=== PATIENT | female | born 1990 | race Caucasian/White ===

== ENCOUNTER 2017-06-22 20:45 | Emergency (ER) | payer OTHER ==
[~2017-06-22] VITALS: Ht 157.5 cm; Wt 69.5 kg
[~2017-06-22 20:45] MED LIST: AMOX500C2 PO; FERR27TA PO; IBUP-1542 PO; LEVE500S8 PO; LOPE2CAP PO; ONDA4TAB35 PO; PREN1TAB49 PO
[2017-06-22 20:48] VITALS: Ht 157.5 cm; Wt 69.5 kg
[2017-06-22] MEDS ORDERED: HYDROmorphONE 1 MG/ML SYG IV STA (21:12)
[2017-06-22] MEDS ORDERED: ONDANSETRON 4 MG INJ IV STA (21:12)
[2017-06-22] MEDS ORDERED: LEVETIRACETAM 750 MG TAB PO ONE (21:30)
[2017-06-22 22:26] VITALS: BP 111/72; PULSE 71; RESP 17; TEMP 98.6
--- NOTE | 2017-06-22 23:03 | RADRPT ---
PROCEDURE: XR Left Wrist. CLINICAL INDICATION: Trauma TECHNIQUE: AP and lateral views of the left wrist were performed. COMPARISON: No prior studies are available for comparison. FINDINGS: There is no evidence of acute fracture. Comminuted fracture of the distal articular metaphysis of the left radius. Likely fracture at the ba se of the ulnar styloid. The bones appear well mineralized. The joint spaces are well preserved. Soft tissue swelling over the distal left forearm and wrist. IMPRESSION: 1. Comminuted fracture of the distal articular metaphysis of the left radius. 2. Likely fracture of the base of the ulnar styloid. RPTAT: [facility] Physician Jeannette Date Time Electronically viewed and signed by Physician Jeannette on 06/22/2017 23:03 RS/
[2017-06-23] MEDS ORDERED: IBUP-1542 PO (00:28)
[2017-06-23] MEDS ORDERED: HYDR-902 PO (00:28)
[2017-06-23] MEDS ORDERED: LEVE750T70 PO (00:29)
[2017-06-23] MEDS ORDERED: HYDROmorphONE 1 MG/ML SYG IV STA (00:40)
--- NOTE | 2017-06-23 00:40 | ERD ---
ER Documentation Chief Complaint Date/Time DATE: 06/23/17 TIME: 00:34 Chief Complaint L wrist with obvious deformity injured during seizure HPI This 26 old female who presented with a seizure prior to arrival with swelling and deformity to her left distal radius. Patient takes Keppra 1000 mg twice daily says she forgot to take it last night. The patient had a witnessed seizure prior to arrival. Patient apparently fell and landed on her left wrist and proceeded to have a seizure lasting approximately 1 minute as general tonic-clonic. Patient had a brief postictal state. The patient is complaining of pain in her left wrist described as sharp nonradiating worse with movement better with rest. Denies any headache neck pain other extremity pain back pain with pain ROS All systems reviewed and are negative except as per history of present illness. Medications Home Meds Active Scripts Levetiracetam* (Keppra*) 750 Mg Tablet, 1500 MG PO BID, #60 TAB Prov:IDALMISOS,APOSTOLOS A. DO 06/23/17 Ibuprofen* (Motrin*) 600 Mg Tab, 600 MG PO Q8, #30 TAB Prov:LEKKOS,APOSTOLOS A. DO 06/23/17 Hydrocodone/Acetaminophen ([place] 10-325 Tablet) 1 Each Tablet, 1 TAB PO Q6H Y for PAIN, #20 TAB Prov:LEKKOS,APOSTOLOS A. DO 06/23/17 Ibuprofen* (Motrin*) 600 Mg Tab, 600 MG PO Q6H Y for PAIN AND OR ELEVATED TEMP, #30 TAB Prov:TAMERA SUMNER. PROTECTIVE SIGNAL OPERATIONS SUPERVISOR 11/27/15 Loperamide Hcl* (Imodium*) 2 Mg Capsule, 2 MG PO .AFTER EA LOOSE BM Y for DIARRHEA, #10 TAB 0 Refills Prov:JOEY GOMEZ PA-C 09/11/15 Ondansetron Hcl* (Zofran* ODT) 4 mg -ODT Tab.disper, 4 MG PO DAILY Y for NAUSEA AND/OR VOMITING, #10 TAB 0 Refills Prov:JOEY GOMEZ PA-C 09/11/15 Reported Medications Amoxicillin* (Amoxicillin*) 500 Mg Cap, 500 MG PO TID, CAP 01/05/15 Levetiracetam* (Keppra*) 500 Mg/5 Ml Solution, 500 MG PO BID 11/17/12 Ferrous Sulfate (Iron) 1 Tab Tablet, 1 TAB PO BID 11/17/12 Vits W-Ca,Fe,Fa(<1MG) () 1 Tab Tablet, 1 TAB PO DAILY 11/17/12 Allergies Allergies: Coded Allergies: No Known Allergies (Verified Allergy, Mild, 09/11/15) PMhx/Soc History of Surgery: No Anesthesia Reaction: No Hx Neurological Disorder: Yes (seizure disorder) Hx Respiratory Disorders: No Hx Cardiac Disorders: No Hx Psychiatric Problems: No Hx Miscellaneous Medical Probl: No (denies PMH) Hx Alcohol Use: No Hx Substance Use: No Hx Tobacco Use: No Smoking Status: Never smoker FmHx Family History: No coronary disease Physical Exam Vitals Vital Signs Date Time Temp Pulse Resp B/P Pulse Ox O2 Delivery O2 Flow Rate FiO2 06/22/17 22:26 98.6 71 17 111/72 100 Room Air 06/22/17 20:48 99.1 83 20 129/97 99 Physical Exam Const: Well-developed, well-nourished Head: Atraumatic, normocephalic Eyes: Normal Conjunctiva, PERRLA, EOMI, normal sclera, no nystagmus ENT: Normal External Ears, Nose and Mouth, moist mucus membranes. Neck: Full range of motion. No meningismus, no lymphadenopathy. Resp: Clear to auscultation bilaterally, no wheezing, rhonchi, rales Cardio: Regular rate and rhythm, no murmurs, S1 S2 present Abd: Soft, non tender x 4, non distended. Normal bowel sounds, no guarding or rebound, no pulsitile abdominal masses or bruits Skin: No petechiae or rashes, no ecchymosis , no maculopapular rash Back: No midline or flank tenderness Ext: No cyanosis, or edema, FROM x 3, left wrist has swelling and some mild ecchymosis to the dorsal aspect of the distal radius is also swelling on the volar aspect of the distal radius is decreased range of motion secondary to pain, normal inspection, neurovascularly intact x 4 Neur: Awake and alert, STR 5/5 x 4, sensation intact x 4, no focal findings, cerebellum intact Psych: Normal Mood and Affect Results 24 hrs Current Medications Medications (Trade) Dose Ordered Sig/Misti Route PRN Reason Start Time Stop Time Status Last Admin Dose Admin Hydromorphone HCl (Dilaudid) 1 mg ONCE STAT IV 06/22/17 21:12 06/22/17 21:14 DC 06/22/17 21:25 Ondansetron HCl (Zofran Inj) 4 mg ONCE STAT IV 06/22/17 21:12 06/22/17 21:14 DC 06/22/17 21:24 Levetiracetam (Keppra) 1,500 mg ONCE ONCE PO 06/22/17 21:30 06/22/17 21:31 DC 06/22/17 21:25 Procedures/MDM PROCEDURE: XR Left Wrist. CLINICAL INDICATION: Trauma TECHNIQUE: AP and lateral views of the left wrist were performed. COMPARISON: No prior studies are available for comparison. FINDINGS: There is no evidence of acute fracture. Comminuted fracture of the distal articular metaphysis of the left radius. Likely fracture at the base of the ulnar styloid. The bones appear well mineralized. The joint spaces are well preserved. Soft tissue swelling over the distal left forearm and wrist. IMPRESSION: 1. Comminuted fracture of the distal articular metaphysis of the left radius. 2. Likely fracture of the base of the ulnar styloid. RPTAT: [facility] Physician Jeannette Date Time Electronically viewed and signed by Physician Jeannette on 06/22/2017 23:03 RS/ CC: MACHO CAMARENA DO Volar splint was applied by casting technician She was loaded with Keppra. We will discharge and follow up with Dr. monte for surgery. Patient likely had a seizure for skipping a dose of Keppra and I will increase her dose this could be a breakthrough seizure Departure Diagnosis: Primary Impression: Closed fracture distal radius and ulna Encounter type: initial encounter Laterality: left Qualified Code: S52.502A - Closed fracture of distal ends of left radius and ulna, initial encounter Additional Impression: Seizure Condition: Stable Patient Instructions: Radius And Ulna Fx, No Reduction Required, Seizure, Recurrent [Adult] Referrals: DAVY SALINAS MD, APOSTOLOS A. DO Jun 23, 2017 00:40
--- NOTE | 2017-06-23 07:21 | RADRPT ---
PROCEDURE: XR Left Wrist. CLINICAL INDICATION: Trauma TECHNIQUE: AP, lateral and oblique views of the left wrist were performed. COMPARISON: No prior studies are available for comparison. FINDINGS: Comminuted, intra-articular mildly dorsally angulated fracture of the distal radius and displaced fr acture of the ulnar styloid are visualized. No evidence of dislocation or subluxation. The bones appear well mineralized. The joint spaces are well preserved. Soft tissue swelling is seen. IMPRESSION: Comminuted mildly dorsally angulated fracture of the distal radius and displaced fracture of the uln ar styloid. Physician Kiah Date Time Electronically viewed and signed by Physician Kiah on 06/23/2017 07:21 CS/
== END 2017-06-23 01:16 | disposition home or self-care (01) ==
LOC: E/R 20:45
DX: S52.502A Unspecified fracture of the lower end of left radius, initial encounter for closed fracture (principal); G40.909 Epilepsy, unspecified, not intractable, without status epilepticus; W18.39XA Other fall on same level, initial encounter; Y92.9 Unspecified place or not applicable
CPT/HCPCS: 73090; 73110; 96374; 96375; 96376; J1170; J2405; Z7502; Z7610

== ENCOUNTER 2018-01-30 22:46 | Emergency (ER) | END 2018-01-30 23:15 | disposition home or self-care (01) ==

== ENCOUNTER 2018-12-08 16:39 | Emergency (ER) | payer OTHER ==
[~2018-12-08] VITALS: Ht 165.1 cm; Wt 65.0 kg
[~2018-12-08 16:39] MED LIST changes: +HYDR-3980 PO; +LEVE750T70 PO
[2018-12-08 16:47] VITALS: Ht 165.1 cm; Wt 65.0 kg
[2018-12-08] MEDS ORDERED: LEVE750T70 PO (17:28)
[2018-12-08] MEDS ORDERED: LORAZEPAM 2 MG INJ IV ONE (17:30)
[2018-12-08] MEDS ORDERED: LEVETIRACETAM 500 MG (PMX) 100 ML IVPB ONE (17:30)
--- NOTE | 2018-12-08 17:31 | ERD ---
ER Documentation Chief Complaint Chief Complaint BIB [facility] FOR EVAL OF SEIZURE. HX OF TAKES KEPPRA. NO HEAD/ORAL TRAUMA HPI This is a 28-year-old female with a long-standing history of seizure disorder since she was a baby was brought in by EMS for a witnessed seizure. Friend witnessed her have a general tonic seizure for 1 minute with a brief postictal state. The patient states she can tell she had a seizure. Patient's last seizure was 3 months ago. She takes 3 medications for seizures including Keppra. The patient states she has not missed any dosages and feels like she had a seizure because she is been stressed out lately. No recent illness. She denies any headache or other complaints. ROS All systems reviewed and are negative except as per history of present illness. Medications Home Meds Active Scripts Levetiracetam* (Keppra*) 750 Mg Tablet, 1500 MG PO BID, #60 TAB Prov:LEKKOS,APOSTOLOS A. DO 12/08/18 Levetiracetam* (Keppra*) 750 Mg Tablet, 1500 MG PO BID, #60 TAB Prov:LEKKOS,APOSTOLOS A. DO 06/23/17 Ibuprofen* (Motrin*) 600 Mg Tab, 600 MG PO Q8, #30 TAB Prov:LEKKOS,APOSTOLOS A. DO 06/23/17 Hydrocodone/Acetaminophen ([place] 10-325 Tablet) 1 Each Tablet, 1 TAB PO Q6H PRN for PAIN, #20 TAB Prov:LEKKOS,APOSTOLOS A. DO 06/23/17 Ibuprofen* (Motrin*) 600 Mg Tab, 600 MG PO Q6H PRN for PAIN AND OR ELEVATED TEMP, #30 TAB Prov:TAMERA SUMNER NP 11/27/15 Loperamide Hcl* (Imodium*) 2 Mg Capsule, 2 MG PO .AFTER EA LOOSE BM PRN for DIARRHEA, #10 TAB 0 Refills Prov:JOEY GOMEZ PA-C 09/11/15 Ondansetron Hcl* (Zofran* ODT) 4 mg -ODT Tab.disper, 4 MG PO DAILY PRN for NAUSEA AND/OR VOMITING, #10 TAB 0 Refills Prov:JOEY GOMEZ PA-C 09/11/15 Reported Medications Amoxicillin* (Amoxicillin*) 500 Mg Cap, 500 MG PO TID, CAP 01/05/15 Levetiracetam* (Keppra*) 500 Mg/5 Ml Solution, 500 MG PO BID 11/17/12 Ferrous Sulfate (Iron) 1 Tab Tablet, 1 TAB PO BID 11/17/12 Vits W-Ca,Fe,Fa(<1MG) () 1 Tab Tablet, 1 TAB PO DAILY 11/17/12 Allergies Allergies: Coded Allergies: No Known Allergies (Verified Allergy, Mild, 09/11/15) PMhx/Soc History of Surgery: No Anesthesia Reaction: No Hx Neurological Disorder: Yes (seizure disorder) Hx Respiratory Disorders: No Hx Cardiac Disorders: No Hx Psychiatric Problems: No Hx Miscellaneous Medical Probl: No (denies PMH) Hx Alcohol Use: No Hx Substance Use: No Hx Tobacco Use: No FmHx Family History: No coronary disease Physical Exam Vitals Vital Signs Date Temp Pulse Resp B/P (MAP) Pulse Ox O2 O2 Flow FiO2 Time Delivery Rate 12/08/18 99.0 90 16 115/70 99 16:47 (85) Physical Exam Const: Well-developed, well-nourished Head: Atraumatic, normocephalic Eyes: Normal Conjunctiva, PERRLA, EOMI, normal sclera, no nystagmus ENT: Normal External Ears, Nose and Mouth, moist mucus membranes. Neck: Full range of motion. No meningismus, no lymphadenopathy. Resp: Clear to auscultation bilaterally, no wheezing, rhonchi, rales Cardio: Regular rate and rhythm, no murmurs, S1 S2 present Abd: Soft, non tender x 4, non distended. Normal bowel sounds, no guarding or rebound, no pulsitile abdominal masses or bruits Skin: No petechiae or rashes, no ecchymosis , no maculopapular rash Back: No midline or flank tenderness Ext: No cyanosis, or edema, FROM x 4, normal inspection, neurovascularly intact x 4 Neur: Awake and alert, STR 5/5 x 4, sensation intact x 4, no focal findings, cerebellum intact Psych: Normal Mood and Affect Results 24 hrs Current Medications Medications Dose Sig/Misti Start Time Status Last (Trade) Ordered Route PRN Stop Time Admin Dose Reason Admin Lorazepam 0.5 mg ONCE ONCE 12/08/18 (Ativan) IV 17:30 12/08/18 17:31 100 ml @ ONCE ONCE 12/08/18 Levetiracetam 400 mls/hr IVPB 17:30 12/08/18 17:44 Procedures/MDM I will give her some intravenous Ativan and Keppra. I am able to manipulate only the Keppra med that she takes out of the 3. She takes 1000 mg twice daily now we will increase this to 1500 mg twice daily Departure Diagnosis: Primary Impression: Seizure disorder Condition: Stable Patient Instructions: Seizure, Recurrent [Adult] Referrals: DOCTOR,NOT ON STAFF (PCP) MACHO CAMARENA DO Dec 08, 2018 17:31
[2018-12-08 19:18] VITALS: BP 127/77; PULSE 91; RESP 18
== END 2018-12-09 08:23 | disposition home or self-care (01) ==
LOC: E/R 16:39
DX: G40.909 Epilepsy, unspecified, not intractable, without status epilepticus (principal)
CPT/HCPCS: 96374; 96375; J1953; J2060; Z7502

== ENCOUNTER 2019-02-14 10:59 | Emergency (ER) | payer OTHER ==
[~2019-02-14] VITALS: Ht 160 cm; Wt 68.0 kg
[2019-02-14 11:10] VITALS: Ht 160 cm; Wt 68.0 kg
[2019-02-14] MEDS ORDERED: KETOROLAC 30 MG INJ IM STA (11:57)
[2019-02-14] MEDS ORDERED: IBUP-1542 PO (13:37)
--- NOTE | 2019-02-14 13:54 | ERD ---
ER Documentation Chief Complaint Chief Complaint neck pain s/p seizure last night HPI Is a 28-year-old female who presents the emergency room with complaint of left- sided neck pain after falling out of bed yesterday. Patient has a history of seizures that she has had since she was a baby and last night had a brief 15- second seizure when she fell out of bed. This was witnessed by her mother. Patient states that she frequently has breakthrough seizures and this is not unusual for her. States she is taking her medications as prescribed. Denies any other chronic medical conditions. ROS All systems reviewed and are negative except as per history of present illness. Medications Home Meds Active Scripts Ibuprofen* (Motrin*) 600 Mg Tab, 600 MG PO Q6, #30 TAB Prov:ASHOK MADRID SPECIAL DIET COOK 02/14/19 Levetiracetam* (Keppra*) 750 Mg Tablet, 1500 MG PO BID, #60 TAB Prov:LEKKOS,APOSTOLOS A. DO 12/08/18 Levetiracetam* (Keppra*) 750 Mg Tablet, 1500 MG PO BID, #60 TAB Prov:LEKKOS,APOSTOLOS A. DO 06/23/17 Ibuprofen* (Motrin*) 600 Mg Tab, 600 MG PO Q8, #30 TAB Prov:LEKKOS,APOSTOLOS A. DO 06/23/17 Hydrocodone/Acetaminophen ([place] 10-325 Tablet) 1 Each Tablet, 1 TAB PO Q6H PRN for PAIN, #20 TAB Prov:LEKKOS,APOSTOLOS A. DO 06/23/17 Ibuprofen* (Motrin*) 600 Mg Tab, 600 MG PO Q6H PRN for PAIN AND OR ELEVATED TEMP, #30 TAB Prov:TAMERA SUMNER SPECIAL DIET COOK 11/27/15 Loperamide Hcl* (Imodium*) 2 Mg Capsule, 2 MG PO .AFTER EA LOOSE BM PRN for DIARRHEA, #10 TAB 0 Refills Prov:JOEY GOMEZ PA-C 09/11/15 Ondansetron Hcl* (Zofran* ODT) 4 mg -ODT Tab.disper, 4 MG PO DAILY PRN for NAUSEA AND/OR VOMITING, #10 TAB 0 Refills Prov:JOEY GOMEZ PA-C 09/11/15 Reported Medications Amoxicillin* (Amoxicillin*) 500 Mg Cap, 500 MG PO TID, CAP 01/05/15 Levetiracetam* (Keppra*) 500 Mg/5 Ml Solution, 500 MG PO BID 11/17/12 Ferrous Sulfate (Iron) 1 Tab Tablet, 1 TAB PO BID 11/17/12 Vits W-Ca,Fe,Fa(<1MG) () 1 Tab Tablet, 1 TAB PO DAILY 11/17/12 Allergies Allergies: Coded Allergies: No Known Allergies (Verified Allergy, Mild, 02/14/19) PMhx/Soc Medical and Surgical Hx: pt denies Surgical Hx History of Surgery: No Anesthesia Reaction: No Hx Neurological Disorder: Yes (seizure disorder) Hx Respiratory Disorders: No Hx Cardiac Disorders: No Hx Psychiatric Problems: No Hx Miscellaneous Medical Probl: No (denies PMH) Hx Alcohol Use: No Hx Substance Use: No Hx Tobacco Use: No Smoking Status: Never smoker Physical Exam Vitals Vital Signs Date Temp Pulse Resp B/P (MAP) Pulse Ox O2 O2 Flow FiO2 Time Delivery Rate 02/14/19 99.0 89 18 109/58 100 11:10 (75) Physical Exam Const: No acute distress Head: Atraumatic, No bruising, no hematoma, no crepitus, no maxillary or facial tenderness Eyes: Normal Conjunctiva, PERRL, EOMI ENT: Normal External Ears, TM clear BL, Nose without discharge, pharynx pink, moist, no lesions, no oral trauma Neck: Full range of motion. No meningismus. No lymphadenopathy. FROM with pain with lateral rotation, tender over left upper trapezius Resp: Clear to auscultation bilaterally Cardio: Regular rate and rhythm, no murmurs Abd: Soft, non tender, non distended. Normal bowel sounds Skin: No petechiae or rashes, no bruising Back: No midline or flank tenderness Ext: No cyanosis, or edema Neur: Awake and alert, CNII-XII intact, steady gait, clear speech, normal [id number] Psych: Normal Mood and Affect Results 24 hrs Laboratory Tests Test 02/14/19 12:08 02/14/19 12:09 Bedside Urine pH (LAB) 5.5 Bedside Urine Protein (LAB) Negative Bedside Urine Glucose (UA) Negative Bedside Urine Ketones (LAB) Trace Bedside Urine Blood Trace-lysed Bedside Urine Nitrite (LAB) Negative Bedside Urine Leukocyte Esterase (L Negative POC Beta HCG, Qualitative NEGATIVE Current Medications Medications Dose Sig/Misti Start Time Status Last (Trade) Ordered Route PRN Stop Time Admin Dose Reason Admin Ketorolac 30 mg ONCE STAT 02/14/19 DC 02/14/19 Tromethamine IM 11:57 12:20 (Toradol) 02/14/19 11:58 Procedures/MDM This is a 20-year-old female who presents emergency room with left neck pain. ED COURSE: The patient was stable throughout ED course. I kept the patient and/or family informed of laboratory and diagnostic imaging results throughout the ED course. MEDICATIONS GIVEN: Toradol Patient tolerated medication well with no adverse reactions. Patient reported improvement in pain. MDM: Patient pain improved after administration of Toradol. Patient ambulating freely, NAD. Exam and w/u not consistent w/ intracranial bleeding, skull fract ure, cervical fracture, dislocation, occult infection Clinical and diagnostic exam not suggestive of infection, intracranial process, SAH, SDH, neoplasm, meningitis, encephalitis, aneurysm, thrombus, temporal arteritis, sinusitis. The patient was well-appearing with VSS and without neurological deficits at time of reevaluation and discharge. The patient has been provided with instructions on self-care including use of analgesia, and need for close follow-up with primary care physician within 1-2 days for reevaluation. The patient has been instructed to return immediately for worsening symptoms, change in pattern of current symptoms, or other acute problems. . DISPOSITION: The patient has been discharge home to follow-up with community physician. Departure Diagnosis: Primary Impression: Neck sprain Condition: Stable Patient Instructions: Neck Sprain/Strain Referrals: [facility] YOU HAVE RECEIVED A MEDICAL SCREENING EXAM AND THE RESULTS INDICATE THAT YOU DO NOT HAVE A CONDITION THAT REQUIRES URGENT TREATMENT IN THE EMERGENCY DEPARTMENT. FURTHER EVALUATION AND TREATMENT OF YOUR CONDITION CAN WAIT UNTIL YOU ARE SEEN IN YOUR DOCTORS OFFICE WITHIN THE NEXT 1-2 DAYS. IT IS YOUR RESPONSIBILITY TO MAKE AN APPOINTMENT FOR FOLOW-UP CARE. IF YOU HAVE A PRIMARY DOCTOR --you should call your primary doctor and schedule an appointment IF YOU DO NOT HAVE A PRIMARY DOCTOR YOU CAN CALL OUR PHYSICIAN REFERRAL HOTLINE AT IF YOU CAN NOT AFFORD TO SEE A PHYSICIAN YOU CAN CHOSE FROM THE FOLLOWING [facility] [address] [facility] [facility] [address] [facility] [address] [facility] [address] [facility] [address] [facility]. [facility] [address] Additional Instructions: Thank you very much for allowing us to participate in your care. Your health and safety is our top priority at [facility]. Call your primary care doctor TOMORROW for an appointment during the next 2-4 days and bring all the information and medications prescribed. Have prescriptions filled and follow precisely the directions on the label. If the symptoms get worse and your provider is unavailable, return to the Emergency Department immediately. USE MOIST HEAT TO NECK 20-30 MIN, 2-3 TIMES PER DAY USE IBUPROFEN FOR PAIN RELIEF PERFORM STRETCHING EXERCISES DAILY FOLLOW-UP WITH YOUR DOCTOR IN 2 WEEKS IF SYMPTOMS HAVE NOT IMPROVED, RETURN TO THIS ER IF SYMPTOMS CHANGE OR WORSEN ASHOK MADRID NP February 14, 2019 13:54
[2019-02-14 14:22] VITALS: BP 107/63; PULSE 88; RESP 18
== END 2019-02-14 14:24 | disposition home or self-care (01) ==
LOC: FTE 10:59
DX: S13.9XXA Sprain of joints and ligaments of unspecified parts of neck, initial encounter (principal); W06.XXXA Fall from bed, initial encounter; Y92.9 Unspecified place or not applicable
CPT/HCPCS: 81003; 81025; 96372; J1885; Z7502